=== PATIENT | male | born 1980 | race Caucasian/White ===

== ENCOUNTER 2024-09-28 07:55 | Outpatient (RCR) | payer BC, SELFPAY ==
--- NOTE | 2024-09-28 16:58 | OPREHPOC ---
Outpatient Therapy Plan of Care This is a Multidisciplinary Plan of Care that may contain components documented by all disciplines (PT, OT, and ST.) PT Problem 1 PT Problem #1 Knowledge Deficit PT Goal 1 Goal / Goal Update Be independent in HEP Target Visit 6 PT Problem 2 PT Problem #2 Impaired Strength PT Goal 1 Goal / Goal Update Improve hip abd strength to at least a 4+/5 bilaterally Hip flex strength to be at least 5/5 bilaterally Improve L hamstring strength to 5/5 Target Visit 12 PT Problem 3 PT Problem #3 Impaired Functional Mobility PT Goal 1 Goal / Goal Update LEFS to be less than or equal to 20% to improve quality of life. Pt to report that he has 0/10 pain when tying his L shoe Pt to tolerate walking at least 1200 feet in 6MWT pain free to promote functional mobility Target Visit 12
--- NOTE | 2024-09-28 16:58 | PTOPEVAL1 ---
Assessment and note entered by JT File, PT Evaluation Information Assessment Status Evaluation ICD-10 Condition Codes (PT) Pain in left knee M25.562 Other ICD-10 Condition Codes ( S83.412a PT) Subjective Information Pt reports that he slipped on wet grass going down a hill. Pt reports that due to the injury he has been working from home. Pt states that walking a lot or sitting a long time used to make it swell up, but recently it has not been swelling. Pt also reports that putting on his shoes sometimes can make the inside of his knee hurt on the L when he turns in his leg. Pt denies any pain and does not have to take medicine for the injury. Pt reported that he had an MRI and it showed a tear. Reported Pain Level Pain Score 0: Self Report Additional Pain Score Comments worst 8-9/10 best 0 Assessment PT Clinical Summary is a 44 y/o male who presents to skilled therapy with a diagnosis of a L MCL tear. All knee special test were negative bilaterally, but MRI results confirm an MCL tear on the L knee. Pt was educated and given exercises to strengthen the knee and hip in conjunction with a HEP. Pt has impairments in hip and knee strength. Pt would benefit from skilled PT to help improve strength deficits, and to work on functional mobility to increase pts quality of life. Plan of Care Interventions Therapeutic Exercise PT Services Indicated Yes Treatment Frequency and 2x a week for 12 visits Duration These treatments will address the objective and functional deficits as defined above. The patient will be advanced safely and appropriately in order for the patient to progress towards his/her prior level of function. Additional exercises will be introduced and as well as a comprehensive home exercise program upon discharge, if needed, ?to ensure carryover of functional gains achieved in the clinic. This treatment plan has been reviewed and agreement upon by the patient.
--- NOTE | 2024-09-28 16:58 | PCPTNOTE ---
On 09/28/24, the student, [Caitlin Spence], provided care and completed [facility] documentation on this patient. I have reviewed the student's documentation and agree with the findings.
--- NOTE | 2024-10-27 07:02 | PCPTNOTE ---
Doctor discharged patient from therapy.
== END 2024-10-18 20:00 | disposition home or self-care (01) ==
LOC: CHSPT 07:55
PROVIDERS: PCP Family Medicine
DX: S83.412A Sprain of medial collateral ligament of left knee, initial encounter (principal)
CPT/HCPCS: 97110; 97112; 97161; 97530